=== PATIENT | male | born 1980 | race American Indian/Alaskan Native ===

== ENCOUNTER 2017-02-27 21:30 | Emergency (ER) | payer BC ==
[2017-02-28] MEDS ORDERED: MOTRIN PO ONE (00:08)
[2017-02-28] MEDS ORDERED: AUGMENTIN 875 MG PO ONE (00:08)
--- NOTE | 2017-02-28 00:11 | Emergency Department Report ---
ED ENT HPI - General Chief complaint: Headache Stated complaint: HEADACHE,EAR PAIN, COUGH Time Seen by Provider: 02/28/17 00:06 Source: patient Mode of arrival: Ambulatory Limitations: No Limitations - History of Present Illness Initial comments: 36-year-old male past medical history hypertension presents with complaint of 2 days of left-sided earache. Denies any pus drainage from ear states he has popping sensation in ear. Denies fevers or chills no sore throat or sinus congestion. Does state that he has been feeling popping sensation in his left ear. States that he has been taking his hypertension medicine consistently. Onset/Timin -: days(s) Location: L ear Severity: moderate Severity scale (0 -10): 6 Quality: aching Consistency: constant Improves with: none Worsens with: none - Related Data Previous Rx's Medication Instructions Recorded Last Taken Type Acetaminophen/Codeine [Tylenol 1 tab PO Q6H PRN #10 tab 02/28/17 Unknown Rx /Codeine # 3 tab] Amoxicillin/K Clav Tab [Augmentin 1 tab PO Q12HR #14 tab 02/28/17 Unknown Rx 875 mg] Ibuprofen [Motrin] 800 mg PO Q8HR PRN #25 tablet 02/28/17 Unknown Rx Allergies Allergy/AdvReac Type Severity Reaction Status Date / Time No Known Allergies Allergy Verified 02/28/17 00:38 ED Dental HPI - General Chief complaint: Headache Stated complaint: HEADACHE,EAR PAIN, COUGH Time Seen by Provider: 02/28/17 00:06 Source: patient Mode of arrival: Ambulatory Limitations: No Limitations - Related Data Previous Rx's Medication Instructions Recorded Last Taken Type Acetaminophen/Codeine [Tylenol 1 tab PO Q6H PRN #10 tab 02/28/17 Unknown Rx /Codeine # 3 tab] Amoxicillin/K Clav Tab [Augmentin 1 tab PO Q12HR #14 tab 02/28/17 Unknown Rx 875 mg] Ibuprofen [Motrin] 800 mg PO Q8HR PRN #25 tablet 02/28/17 Unknown Rx Allergies Allergy/AdvReac Type Severity Reaction Status Date / Time No Known Allergies Allergy Verified 02/28/17 00:38 ED Review of Systems ROS: Stated complaint: HEADACHE,EAR PAIN, COUGH Other details as noted in HPI Constitutional: denies: chills, fever Eyes: denies: eye pain, eye discharge, vision change ENT: as per HPI, ear pain. denies: throat pain Respiratory: denies: cough, shortness of breath, wheezing Cardiovascular: denies: chest pain, palpitations Endocrine: no symptoms reported Gastrointestinal: denies: abdominal pain, nausea, diarrhea Genitourinary: denies: urgency, dysuria Musculoskeletal: denies: back pain, joint swelling, arthralgia Skin: denies: rash, lesions Neurological: denies: headache, weakness, paresthesias Psychiatric: denies: anxiety, depression Hematological/Lymphatic: denies: easy bleeding, easy bruising ED Past Medical Hx - Past Medical History Hx Hypertension: Yes (6 years ago) - Surgical History Past Surgical History?: No - Social History Smoking Status: Never Smoker Substance Use Type: None - Medications Home Medications: Home Medications Medication Instructions Recorded Confirmed Last Taken Type Acetaminophen/Codeine [Tylenol 1 tab PO Q6H PRN #10 tab 02/28/17 Unknown Rx /Codeine # 3 tab] Amoxicillin/K Clav Tab [Augmentin 1 tab PO Q12HR #14 tab 02/28/17 Unknown Rx 875 mg] Ibuprofen [Motrin] 800 mg PO Q8HR PRN #25 tablet 02/28/17 Unknown Rx ED Physical Exam - General Limitations: No Limitations General appearance: alert, in no apparent distress - Head Head exam: Present: atraumatic, normocephalic - Eye Eye exam: Present: normal appearance, PERRL, EOMI - ENT ENT exam: Present: mucous membranes moist - Expanded ENT Exam Expanded TM/Canal exam: Erythema: Left TM, Bulging: Left TM (left tympanic membrane injected bulging visible tympanic membrane rupture. No clinical signs of mastoiditis on external exam bilaterally) - Neck Neck exam: Present: normal inspection, full ROM - Respiratory Respiratory exam: Present: normal lung sounds bilaterally. Absent: respiratory distress - Cardiovascular Cardiovascular Exam: Present: regular rate, normal rhythm. Absent: systolic murmur, diastolic murmur, rubs, gallop - GI/Abdominal GI/Abdominal exam: Present: soft, normal bowel sounds - Rectal Rectal exam: Present: deferred - Extremities Exam Extremities exam: Present: normal inspection - Back Exam Back exam: Present: normal inspection - Neurological Exam Neurological exam: Present: alert, oriented X3 - Psychiatric Psychiatric exam: Present: normal affect, normal mood - Skin Skin exam: Present: warm, dry, intact, normal color. Absent: rash ED Course Vital Signs 02/27/17 21:40 Temperature 99.6 F Pulse Rate 77 Respiratory 18 Rate Blood Pressure 143/102 O2 Sat by Pulse 98 Oximetry ED Medical Decision Making - Medical Decision Making A/P: Left-sided otitis media 1-Augmentin 875 twice a day 7 days 2-Motrin 800 when necessary, short course Tylenol 3 3-follow-up with primary care and ENT Critical care attestation.: If time is entered above; I have spent that time in minutes in the direct care of this critically ill patient, excluding procedure time. ED Disposition Clinical Impression: Otitis media Qualifiers: Otitis media type: unspecified Chronicity: unspecified Laterality: left Qualified Code(s): H66.92 - Otitis media, unspecified, left ear Disposition: - TO HOME OR SELFCARE Is pt being admited?: No Does the pt Need Aspirin: No Condition: Stable Instructions: Otitis Media (ED), Acute Headache (ED) Prescriptions: Acetaminophen/Codeine [Tylenol /Codeine # 3 tab] 1 tab PO Q6H PRN #10 tab PRN Reason: Pain Amoxicillin/K Clav Tab [Augmentin 875 mg] 1 tab PO Q12HR #14 tab Ibuprofen [Motrin] 800 mg PO Q8HR PRN #25 tablet PRN Reason: Ear Pain Referrals: [facility] [Provider Group] - [facility]Provider Group] - 3-5 Days CARLOTA KUMARI MD [Staff Physician] - 3-5 Days [facility] [Provider Group] - 3-5 Days Forms: Work/School Release Form(ED) Time of Disposition: 00:56
[2017-02-28 00:58] VITALS: BP 149/95
== END 2017-02-28 00:58 | disposition home or self-care (01) ==
LOC: ED 21:30
DX: H66.92 Otitis media, unspecified, left ear (principal); I10 Essential (primary) hypertension
CPT/HCPCS: 99282